=== PATIENT | male | born 1980 | race Caucasian/White ===

== ENCOUNTER → 2019-04-02 | Outpatient (REF) | payer OTHER ==
[2019-04-02 10:02] LABS: BASO % 0.5 % (0.0-1.0); EOS # 0.1 10^3/uL (0.0-0.50); HEMATOCRIT 44.3 % (42.0-52.0); HEMOGLOBIN 15.1 g/dl (13.5-17.5); LYMPH # 1.6 10^3/uL (1.5-4.5); LYMPH % 24.6 % (24.0-44.0); MEAN CORPUSCULAR HEMOGLOBIN 29.6 pg (27.0-33.0); MEAN CORPUSCULAR HGB CONC 34.1 g/dl (32.0-36.5); MEAN CORPUSCULAR VOLUME 86.9 fl (80.0-96.0); MONO # 0.6 10^3/uL (0.0-0.8); MONO % 10.1 % (0.0-5.0); NEUTROPHILS # 3.9 10^3/uL (1.8-7.7); NEUTROPHILS % 61.4 % (36.0-66.0); PLATELET COUNT, AUTOMATED 301 10^3/uL (150-450); WHITE BLOOD COUNT 6.4 10^3/uL (4.0-10.0)
[2019-04-02 10:14] LABS: ALT/SGPT 50 U/L (12-78); BILIRUBIN,TOTAL 0.4 MG/DL (0.2-1.0); BLOOD UREA NITROGEN 19 MG/DL (7-18); CALCIUM LEVEL 9.2 MG/DL (8.5-10.1); CARBON DIOXIDE LEVEL 29 MEQ/L (21-32); CHLORIDE LEVEL 108 MEQ/L (98-107); CHOLESTEROL LEVEL 213 MG/DL (<200); CHOLESTEROL RISK RATIO 5.195 (<5); CREATININE FOR GFR 1.09 MG/DL (0.70-1.30); FREE T4 0.87 NG/DL (0.76-1.46); GLOMERULAR FILTRATION RATE > 60.0 (>60); GLUCOSE, FASTING 100 MG/DL (70-100); HDL CHOLESTEROL 41 MG/DL (>40); LDL CHOLESTEROL 133 MG/DL (<100); NON-HDL-C 172 MG/DL; POTASSIUM SERUM 4.3 MEQ/L (3.5-5.1); SODIUM LEVEL 141 MEQ/L (136-145); TOTAL PROTEIN 7.1 GM/DL (6.4-8.2); TRIGLYCERIDES LEVEL 196 MG/DL (<150)
[2019-04-02 10:33] LABS: HEMOGLOBIN A1c 5.3 %
[2019-04-02 12:08] LABS: VITAMIN B12 LEVEL 551 PG/ML (247-911)
[2019-04-02 12:29] LABS: FOLATE 14.2 NG/ML (>5.4)
== END ==
LOC: M LABNEURO 09:03
PROVIDERS: ATTEND Physician Assistant
DX: Z13.29 Encounter for screening for other suspected endocrine disorder (principal); Z13.220 Encounter for screening for lipoid disorders

== ENCOUNTER 2019-08-25 11:29 | Emergency (ER) | payer OTHER ==
[~2019-08-25] VITALS: Ht 170.2 cm; Wt 99.2 kg
[2019-08-25 12:20] LABS: BASO % 0.5 % (0.0-1.0); EOS # 0.1 10^3/uL (0.0-0.5); EOS % 1.4 % (0.0-3.0); HEMATOCRIT 47.2 % (42.0-52.0); HEMOGLOBIN 15.7 g/dl (13.5-17.5); LYMPH # 1.4 10^3/uL (1.5-5.0); LYMPH % 23.9 % (24.0-44.0); MEAN CORPUSCULAR HEMOGLOBIN 29.2 pg (27.0-33.0); MEAN CORPUSCULAR HGB CONC 33.3 g/dl (32.0-36.5); MEAN CORPUSCULAR VOLUME 87.9 fl (80.0-96.0); MONO # 0.5 10^3/uL (0.0-0.8); MONO % 8.6 % (0.0-5.0); NEUTROPHILS # 3.9 10^3/uL (1.5-8.5); NEUTROPHILS % 65.3 % (36.0-66.0); PLATELET COUNT, AUTOMATED 281 10^3/uL (150-450); RED BLOOD COUNT 5.37 10^6/uL (4.30-6.10); WHITE BLOOD COUNT 5.9 10^3/uL (4.0-10.0)
--- NOTE | 2019-08-25 12:21 | REP ---
Clinical: Lower chest and abdominal pain . Comparison: None . Technique: PA and lateral. Findings: The mediastinum and cardiac silhouette are normal. The lung goss are clear and without acute consolidation, effusion, or pneumothorax. The skeletal structures are intact and normal. Impression: 1. No acute cardiopulmonary process. Electronically Signed by Hilario Packer MD 08/25/2019 12:12 P
[2019-08-25] MEDS ORDERED: KETOROLAC 30 MG/ML VIAL (J1885) IV ONE (12:30)
[2019-08-25 12:45] LABS: ALBUMIN 4.1 GM/DL (3.2-5.2); ALT/SGPT 33 U/L (12-78); BILIRUBIN,DIRECT 0.2 MG/DL (0.0-0.2); BILIRUBIN,TOTAL 0.7 MG/DL (0.2-1.0); BLOOD UREA NITROGEN 13 MG/DL (7-18); CALCIUM LEVEL 9.3 MG/DL (8.5-10.1); CARBON DIOXIDE LEVEL 29 MEQ/L (21-32); CHLORIDE LEVEL 104 MEQ/L (98-107); CK-MB VALUE MASS 1.1 NG/ML (<3.6); CPK CREATINE PHOSPHOKINASE 97 U/L (39-308); CREATININE FOR GFR 1.17 MG/DL (0.70-1.30); GLOMERULAR FILTRATION RATE > 60.0 (>60); GLUCOSE, FASTING 86 MG/DL (70-100); LIPASE 98 U/L (73-393); MB/CK RELATIVE INDEX 1.13 (< OR =4); POTASSIUM SERUM 4.4 MEQ/L (3.5-5.1); SODIUM LEVEL 140 MEQ/L (136-145); TROPONIN I < 0.02 NG/ML (< 0.10)
--- NOTE | 2019-08-25 12:46 | REP ---
Clinical: Right upper quadrant pain. Technique: Real time fry scale ultrasound examination using curved array transducer. Findings: Liver and pancreas are normal in contour, size, echogenicity without focal hepatic or pancreatic lesion identified. The gallbladder is normal and without gallstones, wall thickening, or pericholecystic fluid. No biliary ductal dilatation is appreciated and the common bile duct measures 5.0 mm diameter. Right kidney is normal in reniform shape without hydronephrosis measures 12.3 x 4.8 x 5.8 cm. No ascites in the visualized right upper quadrant. Impression: Normal right upper quadrant ultrasound. Electronically Signed by Hilario Packer MD 08/25/2019 12:38 P
[2019-08-25] MEDS ORDERED: ISOVUE-370 76% 100ML VIAL (Q9967) As Ordered ONE (13:28)
[2019-08-25] MEDS ORDERED: ONDANSETRON 4MG/2ML VIAL (J2405) IV ONE (14:00)
[2019-08-25] MEDS ORDERED: MORPHINE 4 MG/ML 1ML VIAL/SYRINGE (J2270) IV ONE (14:00)
--- NOTE | 2019-08-25 14:01 | REP ---
Clinical: Acute pleuritic chest pain . Technique: Axial contrast enhanced images from the thoracic inlet to the upper abdomen using 100 ml Isovue 370 intravenous contrast material with multiplanar re-formations. Findings: Satisfactory enhancement of the pulmonary vasculature is achieved and no filling defects are identified to suggest pulmonary embolus. Further evaluation of the mediastinum demonstrates normal thoracic aorta, heart and pericardium. The bilateral lung goss are well aerated and clear without consolidation pleural effusion or pneumothorax. Tracheobronchial tree is patent. No nodule or mass lesion is identified. No adenopathy noted. Surrounding musculoskeletal structures intact Impression: No evidence for pulmonary embolus. No acute mediastinal or pleural parenchymal process. Electronically Signed by Hilario Packer MD 08/25/2019 01:53 P
--- NOTE | 2019-08-25 14:03 | REP ---
Clinical: Chest and abdominal pain. Technique: Axial contrast enhanced images from the lung bases to the pubic symphysis using 100 ml Isovue 370 intravenous contrast material with coronal and sagittal re-formations. Findings: Liver, spleen, pancreas, gallbladder, bilateral adrenal glands and kidneys are normal. The enteric system is without obstruction or acute inflammatory process. Normal terminal ileum and appendix are identified in the right lower quadrant. Pelvis demonstrates normal bladder and age appropriate prostate/seminal vesicles. No ascites. No free air. No adenopathy. Abdominal aorta and vasculature normal. Musculoskeletal structures are intact. Impression: No acute abdominopelvic pathology appreciated. Electronically Signed by Hilario Packer MD 08/25/2019 01:55 P
[2019-08-25 14:37] VITALS: BP 140/89
[2019-08-25] MEDS ORDERED: KETO10TAB PO (14:40)
[2019-08-25] MEDS ORDERED: NORC1TAB7 PO (14:40)
--- NOTE | 2019-08-26 07:41 | ECGEPIP ---
[facility] - ED Test Date: 2019-08-25 Pat Name: SHAUN RAMSEY Department: Room: - Gender: Male Dispatch Supervisor: : [id number] Requested By: KELSY Briseno PA-C Order Number: [id number] Reading MD: Kole Sykes Measurements Intervals [place] Rate: 66 P: 220 WV: 359 QRS: 40 QRSD: 92 T: 11 QT: 397 QTc: 417 Interpretive Statements Normal sinus rhythm Baseline artifact Electronically Signed on 08-26-2019 7:41:06 EST by Kole Sykes
== END 2019-08-25 14:52 | disposition home or self-care (01) ==
LOC: M ED 11:29
DX: R10.84 Generalized abdominal pain (principal)
CPT/HCPCS: 71046; 71275; 74177; 76705; 80047; 80048; 80076; 81001; 82550; 82553; 83605; 83690; 85025; 93005; 96374; 96375; 99284; J1885; J2270; J2405; Q9967

== ENCOUNTER → 2019-08-31 | Outpatient (CLI) | payer OTHER ==
[~2019-08-31] MED LIST: KETO10TAB PO; NORC1TAB7 PO
--- NOTE | 2019-08-31 13:45 | REP ---
HIDA SCAN WITH GALLBLADDER EJECTION FRACTION: Following the intravenous administration of 6.6 mCi of technetium-99m mebrofenin, multiple images of the right upper quadrant are performed every 5 minutes for a period of 1 hour. There is biliary to bowel transit at 20 minutes post injection and the gallbladder is visualized at 25 minutes post injection, with no scintigraphic evidence of cholecystitis. At the 1 hour mateo 8 ounces of Ensure Enlive is ingested and further imaging performed for 1 hour. Gallbladder activity is measured. The gallbladder ejection fraction is normal at 44%. IMPRESSION: No scintigraphic evidence of cholecystitis. Normal gallbladder ejection fraction 44%. Electronically Signed by Nehemias Dahl MD 08/31/2019 03:53 P
== END ==
LOC: M RAD 10:13
PROVIDERS: ATTEND Surgery
DX: R10.11 Right upper quadrant pain (principal); R63.4 Abnormal weight loss
CPT/HCPCS: 78227; A9537; J2805

== ENCOUNTER → 2020-12-02 | Outpatient (CLI) | payer OTHER ==
[~2020-12-02] MED LIST changes: +ISOVUE-370 76% 100ML VIAL As Ordered ONE
--- NOTE | 2020-12-02 15:50 | REP ---
INDICATION: HALITOSIS. Nasal congestion. Evaluate for sinus abscess. COMPARISON: None. TECHNIQUE: Helical scanning is acquired and 3 mm axial images re-formatted. Coronal and sagittal MPR images are provided. 75 mL of intravenous Isovue 370 is administered. FINDINGS: There is mild mucosal thickening in the inferior aspect of the right maxillary sinus. Left maxillary sinus is clear. There is mild mucosal thickening in 1 of the right ethmoid air cells. The ethmoid sinuses are otherwise clear. Minimal mucosal thickening is seen in the sphenoid sinus. The frontal sinuses are clear. No intraorbital or periorbital mass or abnormal fluid collection is seen. Visualized intracranial structures are unremarkable. No abnormal contrast enhancement is appreciated. The deep facial soft tissues are unremarkable. No vascular abnormality is seen. Bony sinus margins and orbital margins are intact. Bony nasal septum deviates somewhat to the right with a small septal beak. Ostiomeatal complexes are patent. There is a small Anat cell on the left. The upper portion of a cervical spine fusion plate is visible at the bottom edge of the field of view. IMPRESSION: Minimal mucosal changes in the right maxillary and right ethmoid air cells. There is mild septal deviation to the right. There is no evidence of acute sinusitis or soft tissue abscess. <Electronically signed by Franco Islas > 12/02/20 0130
== END ==
LOC: M RAD 15:11
PROVIDERS: ATTEND Physician Assistant
DX: R19.6 Halitosis (principal)
CPT/HCPCS: 70487; Q9967

== ENCOUNTER → 2021-04-01 | Outpatient (CLI) | payer OTHER ==
[~2021-04-01] MED LIST changes: -ISOVUE-370 76% 100ML VIAL As Ordered ONE
--- NOTE | 2021-04-01 11:24 | REP ---
INDICATION: CHRONIC SINUSTIS. COMPARISON: Comparison maxillofacial CT study is December 02, 2020.. TECHNIQUE: Helical scanning is acquired and 2 mm axial images re-formatted. Coronal MPR images are generated and reviewed. FINDINGS: There is some septal thickening in a few of the ethmoid air cells bilaterally and there is 1 opacified ethmoid air cell on the right. These findings are unchanged. Frontal sinuses remain clear. Mastoid aeration is normal. The sphenoid sinuses are clear. There are 2 small mucous retention cysts in the inferior aspect of the right maxillary sinus and there is minimal mucosal thickening in the floor of the left maxillary sinus. These findings are unchanged from the December 02, 2020 study. The nasal septum deviates somewhat to the right with a septal beak. Turbinates soft tissues are unremarkable. No evidence of nasal polyp is seen. There is mild mucosal thickening in the infundibulum of the ostiomeatal complexes bilaterally but neither infundibulum or ostium is occluded. Visualized deep facial and intraorbital soft tissues are unremarkable. No intracranial abnormality is appreciated. IMPRESSION: Mild paranasal sinus mucosal changes essentially stable from December 02, 2020. <Electronically signed by Franco Islas > 04/01/21 1122
== END ==
LOC: M PLAIMG 10:38
PROVIDERS: ATTEND Otolaryngology
DX: R19.6 Halitosis (principal); J32.4 Chronic pansinusitis

== ENCOUNTER → 2021-05-01 | Outpatient (CLI) | payer OTHER | LOC: M PLARAD 09:12 | PROVIDERS: ATTEND Physician Assistant | DX: F45.8 Other somatoform disorders (principal) ==